=== PATIENT | male | born 1950 | race Caucasian/White ===

== ENCOUNTER → 2024-05-29 | Outpatient (CLI) | payer MEDICARE ==
[~2024-05-29] MED LIST: AMLO1TAB25 PO; BACT2CRE TOP; CARV6.25 PO; CHLO125TA PO; COUM1TAB17 PO; COUM2.5T17 PO; LIPI20TA PO; PERC5TAB12 PO; POTA-136 PO; TYLE167L PO; TYLE325T5 PO; VITA100T60 PO; ZEST1TAB7 PO
== END ==
LOC: M CARPUL 09:33
PROVIDERS: ATTEND Registered Nurse
DX: I35.8 Other nonrheumatic aortic valve disorders (principal); I11.9 Hypertensive heart disease without heart failure

== ENCOUNTER → 2024-07-10 | Outpatient (CLI) | payer MEDICARE | LOC: M PLAIMG 09:35 | PROVIDERS: ATTEND Registered Nurse | DX: I35.8 Other nonrheumatic aortic valve disorders (principal); I11.9 Hypertensive heart disease without heart failure ==